=== PATIENT | female | born 1960 | race Caucasian/White ===

== ENCOUNTER 2019-11-21 12:56 | Inpatient (IN) | payer MEDICARE, OTHER, SELFPAY ==
--- NOTE | ~2019-11-21 | XR_ITS ---
EXAMINATION: XR chest 2V DATE: 11/21/2019 15:58 INDICATION: Smoker. Preop. TECHNIQUE: Frontal and lateral views of the chest were obtained. COMPARISON: None. FINDINGS: The lungs are hyperexpanded. No pleural effusion or pneumothorax. The heart size is normal. IMPRESSION: 1. Hyperexpanded lungs, consistent with chronic obstructive pulmonary disease. Reviewed, dictated and finalized at location A.
--- NOTE | ~2019-11-21 | XR_ITS ---
EXAMINATION: XR hip LT 2V w AP pelvis DATE: 11/21/2019 15:38 INDICATION: Left hip pain. TECHNIQUE: An anteroposterior view of the pelvis and 2 views of left hip were obtained. COMPARISON: Pelvis radiograph 05/31/2018 FINDINGS: There is a subcapital fracture of left femoral neck. The distal fracture fragment demonstra tom impaction and 20 degrees valgus angulation. There is moderate left hip osteoarthritis. There is a total right hip arthroplasty in near-anatomic alignment. IMPRESSION: 1. Subcapital fracture of left femoral neck. 2. Moderate left hip osteoarthritis. 3. Total right hip arthroplasty in near-anatomic alignment. Reviewed, dictated and finalized at location A.
--- NOTE | ~2019-11-21 | XR_ITS ---
EXAMINATION: XR surgery orthopedic DATE: 11/22/2019 13:26 INDICATION: Left hip pinning TECHNIQUE: 2 fluoroscopic images of the left hip were obtained during procedure performed by Dr. Luis F fortune. Radiologist was not present for the imaging or procedure. The amount of fluoroscopy time used du ring this procedure was 2.6 minutes. COMPARISON: 11/21/2019 FINDINGS: Interval fixation of the previously noted subcapital fracture of the proximal femur with 3 cannulated lag screws. No change in some impaction along the posterior and lateral margins of the fracture. The re is some widening of the left hip joint space which could be related to the presence of a joint eff usion or traction upon the lower extremity. Expected small amount of postoperative gas in the surroun ding soft tissues. IMPRESSION: 1. Expected appearance post lag screw fixation of an impacted subcapital fracture of the proximal lef t femur. Reviewed, dictated and finalized at location A. IMPRESSION: 1. Expected appearance post lag screw fixation of an impacted subcapital fractu re of the proximal left femur.
[2019-11-21 13:14] VITALS: BP 119/72; PULSE 88; RESP 16; TEMP 36.6; O2SAT 100
[2019-11-21 14:41] VITALS: BP 119/72; PULSE 88; RESP 17; TEMP 36.6; O2SAT 100
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
[2019-11-21] MEDS: MORPHINE SULFATE (*CRX) 2 MG/ML INJ IV PUSH ×3 (15:36→22:36)
[2019-11-21 16:13] LABS: Basophils Absolute Auto 0.1 K/mm3 (0.0-0.1); Basophils Percent Auto 0.5 % (0.2-1.2); Eosinophils Absolute Auto 0.1 K/mm3 (0-0.3); Eosinophils Percent Auto 1.3 % (0-4.4); Hematocrit 46.1 % (37.0-47.0); Hemoglobin 15.2 g/dL (12.0-15.0); Immature Granulocyte Absolute 0.03 K/mm3 (0.00-0.031); Immature Granulocyte Percent A 0.3 % (0-0.5); Lymphocytes Absolute Auto 2.53 K/mm3 (0.9-3.2); Lymphocytes Percent Auto 27.8 % (18.3-44.2); Mean Corpuscular Hemoglobin 33.1 pg (26-34); Mean Corpuscular Volume 100.4 fl (80-100); Mean Platelet Volume 11.5 fl (7.4-10.4); Monocytes Absolute Auto 0.9 K/mm3 (0.1-0.6); Monocytes Percent Auto 9.5 % (2.6-8.5); Neutrophils Absolute Auto 5.5 K/mm3 (1.3-6.7); Neutrophils Percent Auto 60.6 % (45.5-73.1); Platelet Count Result 168 k/mm3 (150-375); Red Blood Count 4.59 M/mm3 (4.2-5.4); Red Cell Distribution Width 13.4 % (11.5-14.5); White Blood Count 9.1 K/mm3 (4.5-10.0)
[2019-11-21 16:23] LABS: Prothrombin Time 13.3 Seconds (11.1-14.7)
[2019-11-21 16:24] LABS: Partial Thromboplastin Time 26.1 SECONDS (22.3-36.8)
[2019-11-21 16:26] LABS: Anion Gap 7 mmol/L (8-16); Blood Urea Nitrogen 15 mg/dL (7-17); Calcium 9.7 mg/dL (8.4-10.2); Carbon Dioxide 33 mmol/L (22-30); Chloride 97 mmol/L (98-107); Estimated CRCL calculation 67 ml/min; Estimated Glomerular Filt Rate > 60; Glucose 106 mg/dL (65-105); Sodium 137 mmol/L (137-145)
[2019-11-21 18:42] VITALS: BP 113/80; PULSE 83; RESP 20; TEMP 37.2; O2SAT 98
[2019-11-21 19:10] VITALS: BP 100/63; PULSE 71; RESP 20; TEMP 36.4; O2SAT 97; BMI 19.4
--- NOTE | 2019-11-21 19:44 | ADMGEN ---
This patient, Saray Middleton, was admitted to 3 [facility] Surg Room 315-01. Patient/family oriented to hospital policies and general routines including ID bracelet, bed and alarms, visiting hours, pain management, procedures, bathroom and other care routines, personal items, smoking policy, room service/diet, and visiting hours. Valuables list has been completed. Information on how to activate the Rapid Response Team has been discussed. Patient/Family are encouraged to report perceived risks to care and to ask questions if they do not understand what they are told or what they should do.
[2019-11-21 22:00] VITALS: BP 105/49; PULSE 73; RESP 20; TEMP 36.7; O2SAT 94
[2019-11-22] VITALS (13 sets, daily range): BP systolic 96–128; BP diastolic 44–75; PULSE 58–74; RESP 10–20; TEMP 36.1–37; O2SAT 94–100
[2019-11-22] MEDS: MORPHINE SULFATE (*CRX) 2 MG/ML INJ IV PUSH ×4 (01:52→10:40)
--- NOTE | 2019-11-22 09:40 | SUR.PREOP ---
Confirmed giving patient Ancef in OR with known penicillin allergy. Per Dr. Mcqueen proceed with orders for IV ancef.
[2019-11-22] MEDS: DEXTROSE 5%/0.45% SOD CHL 1,000 ML 125 ML IV CONT (10:01)
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
--- NOTE | 2019-11-22 10:49 | WPDANESEPPF ---
Anes - Initial Pre Proc Eval Procedure: Operation Date: 11/22/19 13:00 Proposed Procedures p Left Hip Pinning(Left) - Garcia Mcqueen MD Date/Time: 11/22/19 10:49 Surgeon: Garcia Mcqueen MD Pre Op Diagnosis: left hip fracture Patient Data Age: 59 Gender: F Height: 5 ft 10 in Weight: 61.4 kg Last Vital Signs Temp 97.9 F 11/22/19 06:00 Pulse 65 11/22/19 06:00 Resp 20 11/22/19 06:00 BP 100/47 L 11/22/19 06:00 Pulse Ox 96 11/22/19 06:00 Allergies Allergy/AdvReac Type Severity Reaction Status Date / Time Sulfa (Sulfonamide Allergy Mild Anaphylactic Verified 11/21/19 14:45 Antibiotics) Shock Penicillins Allergy Unknown Anaphylaxis Verified 11/21/19 14:45 Home Medications Medication Instructions Recorded Confirmed Type escitalopram oxalate 30 mg PO DAILY 11/21/19 11/21/19 History trazodone 150 mg PO HS 11/21/19 11/21/19 History Laboratory Tests 11/21/19 11/21/19 11/21/19 16:06 16:06 16:06 WBC 9.1 K/mm3 K/mm3 (4.5-10.0) RBC 4.59 M/mm3 M/mm3 (4.2-5.4) Hgb 15.2 g/dL H g/dL (12.0-15.0) Hct 46.1 % % (37.0-47.0) MCV 100.4 fl H fl (80-100) MCH 33.1 pg pg (26-34) MCHC 33.0 g/dl g/dl (32-36) RDW 13.4 % % (11.5-14.5) Plt Count 168 k/mm3 k/mm3 (150-375) MPV 11.5 fl H fl (7.4-10.4) Immature Gran % (Auto) 0.3 % % (0-0.5) Neut % (Auto) 60.6 % % (45.5-73.1) Lymph % (Auto) 27.8 % % (18.3-44.2) [place] % (Auto) 9.5 % H % (2.6-8.5) Eos % (Auto) 1.3 % % (0-4.4) Baso % (Auto) 0.5 % % (0.2-1.2) Lymph # (Auto) 2.53 K/mm3 K/mm3 (0.9-3.2) [place] # (Auto) 0.9 K/mm3 H K/mm3 (0.1-0.6) Eos # (Auto) 0.1 K/mm3 K/mm3 (0-0.3) Baso # (Auto) 0.1 K/mm3 K/mm3 (0.0-0.1) Abs Immat Gran (auto) 0.03 K/mm3 K/mm3 (0.00-0.031) Absolute Neuts (auto) 5.5 K/mm3 K/mm3 (1.3-6.7) Absolute Nucleated RBC 0.0 K/mm3 K/mm3 (0.0-0.012) Nucleated RBC % 0.0 % % (0.0-0.2) PT 13.3 Seconds Seconds (11.1-14.7) INR 1.0 APTT 26.1 SECONDS SECONDS (22.3-36.8) Sodium 137 mmol/L mmol/L (137-145) Potassium 4.0 mmol/L mmol/L (3.4-5.0) Chloride 97 mmol/L L mmol/L (98-107) Carbon Dioxide 33 mmol/L H mmol/L (22-30) Anion Gap 7 mmol/L L mmol/L (8-16) BUN 15 mg/dL mg/dL (7-17) Creatinine 0.80 mg/dL mg/dL (0.7-1.0) Estim Creat Clear Calc 67 ml/min ml/min Estimated GFR > 60 (59 - ) Glucose 106 mg/dL H mg/dL (65-105) Calcium 9.7 mg/dL mg/dL (8.4-10.2) Patient hx anesthesia problems: none Family hx anesthesia problems: none PMFSH Past Medical History Medical History Depression Surgical History Surgical History History of right hip replacement Social History Social History Smoking packs per day: 1 Smoking cigarettes per day: 20.0 Years smoked: 25 Smoking pack-years: 25.00 Smoking status: Current every day smoker Smoking end date: 02/23/17 Alcohol intake: current Drinks per week: 2 Substance use: never Spiritual care concerns: No Anes - Eval Final PreProcedure Day of Procedure 11/22/19 10:49 Patient weight: normal Heart: regular rate and rhythm Lungs: clear to auscultation Airway: Mallampati scale class II Neurological: alert and oriented Last oral intake: >/= 8 hours ASA classification: II Emergent: no Anesthetic plan: proceed Anesthesia type and monitoring: general ETT and standard monitoring Informed Consent: The patient's anesthetic plan and its attendant risks and benefits were discussed with the patient/family/POA. Questions were solicited and answers
--- NOTE | 2019-11-22 11:25 | PC.NURSE ---
Patient down to surgery at 1125.
--- NOTE | 2019-11-22 11:30 | SUR.PREOP ---
Obtained orders for 50MCG fentanyl IVP once for patient's left hip pain from Dr. He. Patient rating pain an 8 on numeric scale at this time.
[2019-11-22] MEDS: ACETAMINOPHEN 500 MG TABLET 1000 MG PO (11:33)
[2019-11-22] MEDS: LACTATED RINGERS 1,000 ML 30 ML IV CONT ×2 (11:33→13:31)
--- NOTE | 2019-11-22 11:55 | WPDHPUPDATE1 ---
History and Physical Update Update Date/Time: 11/22/19 11:55 History and Physical has been reviewed, including an updated exam of the patient. There are NO changes in the patient's condition. Risks, benefits, and alternatives have been discussed and questions answered. Patient agrees to proceed with procedure.
[2019-11-22] MEDS: fentaNYL CITRATE INJ (*CRX) 100 MCG/2 ML VIAL 50 MCG IV PUSH (11:57)
[2019-11-22] MEDS: ceFAZolin 2 GM/D5W 50 ML 2 GM/50 ML BAG IVPB ×2 (12:33→19:44)
--- NOTE | 2019-11-22 13:20 | PM.PROC ---
Procedure Note - Detailed Date of procedure: 11/22/19 Pre-op diagnosis: left hip fracture LEFT FEMORAL NECK FRACTURE Post-op diagnosis: same Procedure performed: CLOSED REDUCTION, PERCUTANEOUS PINNING LEFT FEMORAL NECK Description of procedure: THE PATIENT WAS TAKEN TO THE OPERATING ROOM AND PLACED UNDER GENERAL ANESTHESIA. THE PATIENT WAS PLACED ON A FRACTURE TABLE. USING MILD TRACTION AND INTERNAL ROTATION THE LEFT FEMORAL NECK FRACTURE WAS REDUCED TO NEAR ANATOMIC POSITION. NEXT THE LEFT LOWER EXTREMITY WAS PREPPED AND DRAPED IN THE STERILE FASHION FROM THE KNEE TO THE ILIAC CREST. THE INCISION WAS MADE ON THE LATERAL HIP JUST DISTAL TO THE GREATER TROCHANTER DOWN TO THE BONE. BLEEDERS WERE CAUTERIZED. 3 GUIDE PINS WERE PLACED THROUGH THE FEMORAL NECK AND PASSED THE FRACTURE SITE AND IN TO THE SUBCHONDRAL BONE OF THE FEMORAL HEAD. 3, 7.3 CANNULATED SCREWS WERE PLACED OVER THE GUIDE PINS AND THESE WERE SHOWN TO BE IN GOOD POSITION PER FLUOROSCOPY ON BOTH THE AP AND LATERAL VIEWS. THEY ALL HAD EXCELLENT BITES. THE WOUND WAS WASHED WELL. THE DEEP FASCIAL LAYER WAS APPROXIMATED WITH 0 VICRYL SUTURE, THE SUBCUTANEOUS LAYER WITH 2-0 VICRYL AND THE SKIN WAS APPROXIMATED WITH ANNA. A STERILE DRESSING WAS PLACED. THE PATIENT WAS TRANSFERRED TO A REGULAR BED AND WAS EXTUBATED AND SENT TO RECOVERY ROOM Anesthesia: AZAR Surgeon: Garcia Mcqueen MD Estimated blood loss (mL): 50 Complications: No immediate complications Condition: stable Disposition: PACU
[2019-11-22] MEDS: fentaNYL CITRATE INJ (*CRX) 100 MCG/2 ML VIAL 25 MCG IV PUSH ×8 (13:47→14:15)
[2019-11-22] MEDS: ONDANSETRON INJ 4 MG/2 ML VIAL IV PUSH (14:08)
[2019-11-22] MEDS: HYDROmorphone HCL INJ (*CRX) 1 MG/ML SYR 0.5 MG IV PUSH ×2 (14:23→14:28)
--- NOTE | 2019-11-22 14:33 | SUR.PHASEI ---
1433 - dr. palafox at bedside talking with pt
--- NOTE | 2019-11-22 15:10 | PC.NURSE ---
Patient back on floor from surgery at 1505.
[2019-11-22] MEDS: SODIUM CHLORIDE 0.9% IV 1,000 ML 125 ML IV CONT ×2 (15:55→23:47)
[2019-11-22] MEDS: HYDROcodone/acetaminophen (*CRX) 7.5-325 MG TABLET 1 TAB PO ×2 (16:35→21:56)
[2019-11-22] MEDS: DOCUSATE SODIUM 100 MG CAPSULE PO (16:39)
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
[2019-11-22] MEDS: traZODone HCL 50 MG TABLET 150 MG PO (19:44)
[2019-11-22] MEDS: MORPHINE SULFATE (*CRX) 4 MG/ML INJ 3 MG IV PUSH (19:45)
[2019-11-23] MEDS: MORPHINE SULFATE (*CRX) 4 MG/ML INJ 3 MG IV PUSH (02:15)
[2019-11-23] MEDS: ceFAZolin 2 GM/D5W 50 ML 2 GM/50 ML BAG IVPB ×2 (03:47→11:09)
[2019-11-23] MEDS: oxyCODONE/ACETAMINOPHEN (*CRX) 5-325 MG TABLET 2 TABLET PO ×6 (03:52→23:01)
[2019-11-23 06:10] VITALS: BP 142/64; PULSE 68; RESP 12; TEMP 36.3; O2SAT 98
[2019-11-23 07:18] LABS: Basophils Percent Auto 0.4 % (0.2-1.2); Eosinophils Absolute Auto 0.1 K/mm3 (0-0.3); Eosinophils Percent Auto 0.7 % (0-4.4); Hematocrit 38.1 % (37.0-47.0); Hemoglobin 12.5 g/dL (12.0-15.0); Immature Granulocyte Absolute 0.04 K/mm3 (0.00-0.031); Immature Granulocyte Percent A 0.5 % (0-0.5); Lymphocytes Absolute Auto 2.12 K/mm3 (0.9-3.2); Lymphocytes Percent Auto 28.2 % (18.3-44.2); Mean Corpuscular HGB Conc 32.8 g/dl (32-36); Mean Corpuscular Hemoglobin 32.5 pg (26-34); Mean Platelet Volume 11.4 fl (7.4-10.4); Monocytes Absolute Auto 0.7 K/mm3 (0.1-0.6); Monocytes Percent Auto 9.6 % (2.6-8.5); Neutrophils Absolute Auto 4.6 K/mm3 (1.3-6.7); Neutrophils Percent Auto 60.6 % (45.5-73.1); Platelet Count Result 155 k/mm3 (150-375); Red Blood Count 3.85 M/mm3 (4.2-5.4); Red Cell Distribution Width 12.6 % (11.5-14.5); White Blood Count 7.5 K/mm3 (4.5-10.0)
[2019-11-23 07:27] LABS: Anion Gap 2 mmol/L (8-16); Blood Urea Nitrogen 11 mg/dL (7-17); Calcium 8.8 mg/dL (8.4-10.2); Carbon Dioxide 34 mmol/L (22-30); Chloride 104 mmol/L (98-107); Estimated CRCL calculation 74 ml/min; Estimated Glomerular Filt Rate > 60; Glucose 95 mg/dL (65-105); Sodium 140 mmol/L (137-145)
[2019-11-23] MEDS: CELECOXIB 200 MG CAPSULE PO (07:58)
[2019-11-23] MEDS: ASPIRIN 325 MG ENTERIC TABLET 650 MG PO (07:58)
[2019-11-23] MEDS: DOCUSATE SODIUM 100 MG CAPSULE PO ×2 (07:59→17:07)
[2019-11-23] MEDS: ESCITALOPRAM OXALATE 10 MG TABLET 30 MG PO (07:59)
--- NOTE | 2019-11-23 12:59 | WPDANESPN ---
Anes - Prog Note Post-Op Date/Time: 11/23/19 12:59 Cardiovascular status: normal Respiratory status: normal Airway patency: baseline Mental status: baseline Post-Op hydration status: normal Vital Signs: Last Vital Signs Temp 36.3 C L 11/23/19 06:10 Pulse 68 11/23/19 06:10 Resp 12 11/23/19 06:10 BP 142/64 H 11/23/19 06:10 Pulse Ox 98 11/23/19 06:10 Pain Score (VAS): 0/10. Patient resting in bed at time of assessment, appears comfortable. No additional concerns or issues addressed by patient at time of assessment. I/O: Intake & Output 11/22/19 11/23/19 11/23/19 23:59 07:59 15:59 Intake Total 2150 800 290 Output Total 2800 Balance 2150 -1999 290 Laboratory Tests 11/23/19 06:35 11/23/19 06:35 11/23/19 11/23/19 06:35 06:35 WBC 7.5 RBC 3.85 L Hgb 12.5 Hct 38.1 MCV 99.0 MCH 32.5 MCHC 32.8 RDW 12.6 Plt Count 155 MPV 11.4 H Immature Gran % (Auto) 0.5 Neut % (Auto) 60.6 Lymph % (Auto) 28.2 [place] % (Auto) 9.6 H Eos % (Auto) 0.7 Baso % (Auto) 0.4 Lymph # (Auto) 2.12 [place] # (Auto) 0.7 H Eos # (Auto) 0.1 Baso # (Auto) 0.0 Abs Immat Gran (auto) 0.04 H Absolute Neuts (auto) 4.6 Absolute Nucleated RBC 0.0 Nucleated RBC % 0.0 Sodium 140 Potassium 4.0 Chloride 104 Carbon Dioxide 34 H Anion Gap 2 L BUN 11 Creatinine 0.70 Estim Creat Clear Calc 74 Estimated GFR > 60 Glucose 95 Calcium 8.8 Post-procedural complaints: none Patient Feedback: Patient satisfied with anesthetic care.
--- NOTE | 2019-11-23 13:01 | PM.IMPN ---
Progress Note: A&P Assessment and Plan (1) Fracture of left hip requiring operative repair: Code(s): S72.002A - Fracture of unspecified part of neck of left femur, initial encounter for closed fracture Status: Acute Assessment and Plan: Patient is doing well postop day 1. After having a CLOSED REDUCTION, PERCUTANEOUS PINNING LEFT FEMORAL NECK. The patient has bilateral SCDs on but DVT prophylaxis per ortho. Pain management per Ortho. Postop care per Ortho. Your consult on for medical management in her postop labs are all within normal range. There is no adjustments necessary at this time and she is stable from a medical standpoint for discharge once medically cleared by orthopedic surgery. (2) Anxiety: Code(s): F41.9 - Anxiety disorder, unspecified Status: Chronic Assessment and Plan: Continue with Lexapro and trazodone (3) Depression: Code(s): F32.9 - Major depressive disorder, single episode, unspecified Status: Chronic Assessment and Plan: continue with Lexapro (4) Tobacco abuse: Code(s): Z72.0 - Tobacco use Status: Chronic Assessment and Plan: Explained to the patient she needs to quit smoking for 3 minutes. I told her that her chest x-ray showed she has some hyperinflation from COPD changes. Patient is not interested at this time is not want a nicotine patch at this time. Time Spent With Patient Time with patient: 25 - 35 minutes Subjective Date/time seen: 11/23/19 13:01 Interval history: Date of service 11/23/2019: The patient reports feeling well today. She is having some pain to her hip after surgery but she is resting now on it is more comfortable. She has been eating and drinking without any issues. She is passing gas, but has not had a bowel movement at this point. She denies any leg swelling, calf pain, chest pain, shortness of breath, cough, fever, chills, nausea, vomiting, abdominal pain or any other symptoms at this time. Review of Systems Review of Systems: All systems reviewed & are unremarkable except as noted in HPI and below Exam Narrative: Exam Narrative: General: 59-year-old woman laying flat in bed with head elevated at 30?. Appears comfortable. In no acute distress. Skin: No jaundice or cyanosis. Good skin turgor. Neck: Full range of motion. Supple. Respiratory: Lungs are clear to auscultation bilaterally. No bony chest wall tenderness. Cardiovascular: The heart has a regular rate and rhythm without murmur Lower extremities: left hip dressing in place post op which was not evaluated and left up to Ortho. No lower extremity edema. Distal pulses are easily palpated. No calf tenderness to palpation. Gastrointestinal: The abdomen is soft, nontender and nondistended with active bowel sounds. Psychiatric: Lucid and oriented. Memory intact. Neurologic: No focal deficits. Speech is clear. No facial drooping. Objective Data Vital Signs Vital Signs: Vital Signs - 24 hr 11/22/19 13:31 11/22/19 13:45 11/22/19 14:00 Temperature 97.0 F L Pulse Rate 58 L 70 61 Respiratory Rate 10 L 10 L 12 Blood Pressure 111/63 128/75 110/63 Pulse Oximetry 100 100 94 11/22/19 14:15 11/22/19 14:30 11/22/19 14:45 Temperature Pulse Rate 61 60 74 Respiratory Rate 12 10 L 20 Blood Pressure 122/63 125/66 119/67 Pulse Oximetry 97 97 95 11/22/19 15:10 11/22/19 15:25 11/22/19 15:55 Temperature 97.9 F Pulse Rate 64 65 64 Respiratory Rate 18 18 18 Blood Pressure 114/57 L 119/57 L 100/50 L Pulse Oximetry 95 94 94 11/22/19 16:55 11/22/19 20:40 11/23/19 06:10 Temperature 97.9 F 98.6 F 97.4 F L Pulse Rate 71 69 68 Respiratory Rate 18 14 12 Blood Pressure 104/52 L 116/51 L 142/64 H Pulse Oximetry 95 98 98 Intake/Output Intak
[2019-11-23 14:00] VITALS: BP 101/71; PULSE 75; RESP 18; TEMP 36.3; O2SAT 97
[2019-11-23] MEDS: diazePAM (*CRX) 5 MG TABLET PO (15:58)
--- NOTE | 2019-11-23 16:07 | PM.PNORT ---
Progress Note: A&P Additional Plan POD 1 DOING WELL. CONT PT Subjective Subjective Date/Time Seen: POD 1 DOING WELL. PAIN CONTROL IS A CHALLENGE 16:07 Exam Extrem: Other: VSS AFEBRILE DRESSING DRY NV INTACT NEG HOMANS SIGN CALF SOFT NON TENDER Objective Data Vital Signs Vital Signs: Vital Signs - 24 hr 11/22/19 16:55 11/22/19 20:40 11/23/19 06:10 Temperature 36.6 C 37.0 C 36.3 C L Pulse Rate 71 69 68 Respiratory Rate 18 14 12 Blood Pressure 104/52 L 116/51 L 142/64 H Pulse Oximetry 95 98 98 11/23/19 14:00 Temperature 36.3 C L Pulse Rate 75 Respiratory Rate 18 Blood Pressure 101/71 Pulse Oximetry 97 Intake/Output Intake/Output: Intake & Output 11/20/19 11/21/19 11/22/19 11/23/19 23:59 23:59 23:59 23:59 Intake Total 3140 1330 Output Total 2800 Balance 3140 -1470 Meds/Results Medications: Active Medications Generic Name Dose Route Start Last Admin Trade Name Freq PRN Reason Stop Dose Admin Acetaminophen 650 mg 11/22/19 15:00 Tylenol Tablet PO Q6H PRN Mild Pain (1-3) or Fever Hydrocodone Bitart/Acetaminophen 1 tab 11/22/19 15:00 11/22/19 21:56 [place] 7.5-325 Mg PO 1 tab Q3H PRN Administration Pain Rated 4-6 Al Hydrox/Mg Hydrox/Simethicone 30 ml 11/22/19 15:00 Mylanta PO Q6H PRN Indigestion Aspirin 650 mg 11/23/19 09:00 11/23/19 07:58 Aspirin Ec PO 650 mg DAILY BILL Administration Celecoxib 200 mg 11/23/19 08:00 11/23/19 07:58 Celebrex PO 200 mg DAILY@0800 BILL Administration Diazepam 5 mg 11/22/19 15:00 11/23/19 15:58 Valium Po PO 5 mg Q8H PRN Administration Muscle Spasm Docusate Sodium 100 mg 11/22/19 17:00 11/23/19 07:59 Colace Capsule PO 100 mg BID BILL Administration Escitalopram Oxalate 30 mg 11/23/19 09:00 11/23/19 07:59 Lexapro PO 30 mg DAILY BILL Administration Magnesium Hydroxide 30 ml 11/22/19 15:00 Milk Of Magnesia PO BID PRN Constipation Morphine Sulfate 3 mg 11/22/19 15:00 11/23/19 02:15 Morphine Sulfate Inj (*Crx) IV PUSH 3 mg Q3H PRN Administration Pain Rated 7-10 Naloxone HCl 0.1 mg 11/22/19 15:00 Narcan IV PUSH Q2M PRN Opiate Reversal Ondansetron HCl 4 mg 11/22/19 15:00 Zofran Inj IV PUSH Q4H PRN Nausea And Vomiting Oxycodone/Acetaminophen 2 tablet 11/22/19 15:00 11/23/19 14:54 Percocet 5-325 Mg PO 2 tablet Q4H PRN Administration Breakthrough Pain Trazodone HCl 150 mg 11/22/19 21:00 11/22/19 19:44 Desyrel PO 150 mg HS BILL Administration Radiology Results: ITS Impressions Hip/Pelvis X-Ray 11/21/19 15:40 IMPRESSION: 1. Subcapital fracture of left femoral neck. 2. Moderate left hip osteoarthritis. 3. Total right hip arthroplasty in near-anatomic alignment. Chest X-Ray 11/21/19 16:00 IMPRESSION: 1. Hyperexpanded lungs, consistent with chronic obstructive pulmonary disease. Intraoperative X-Ray 11/22/19 15:40 IMPRESSION: 1. Expected appearance post lag screw fixation of an impacted subcapital fracture of the proximal left femur. Labs Labs: Laboratory Results - last 24 hr 11/23/19 11/23/19 06:35 06:35 WBC 7.5 RBC 3.85 L Hgb 12.5 Hct 38.1 MCV 99.0 MCH 32.5 MCHC 32.8 RDW 12.6 Plt Count 155 MPV 11.4 H Immature Gran % (Auto) 0.5 Neut % (Auto) 60.6 Lymph % (Auto) 28.2 [place] % (Auto) 9.6 H Eos % (Auto) 0.7 Baso % (Auto) 0.4 Lymph # (Auto) 2.12 [place] # (Auto) 0.7 H Eos # (Auto) 0.1 Baso # (Auto) 0.0 Abs Immat Gran (auto) 0.04 H Absolute Neuts (auto) 4.6 Absolute Nucleated RBC 0.0 Nucleated RBC % 0.0 Sodium 140 Potassium 4.0 Chloride 104 Carbon Dioxide 34 H Anion Gap 2 L BUN 11 Creatinine 0.70 Estim Creat Clear Calc 74 Estimated GFR > 60 Glucose 95 Calcium 8.8 Quality VTE Prophylaxis VTE prophylaxis: mechanical ordered
[2019-11-23] MEDS: traZODone HCL 50 MG TABLET 150 MG PO (21:23)
[2019-11-23 22:00] VITALS: BP 101/48; PULSE 70; RESP 18; TEMP 36.9; O2SAT 95
[2019-11-24] MEDS: diazePAM (*CRX) 5 MG TABLET PO ×3 (00:32→20:49)
[2019-11-24 03:27] VITALS: BP 124/56; PULSE 69; O2SAT 98
[2019-11-24] MEDS: oxyCODONE/ACETAMINOPHEN (*CRX) 5-325 MG TABLET 2 TABLET PO ×5 (03:28→23:55)
[2019-11-24 06:00] VITALS: BP 112/58; PULSE 63; RESP 18; TEMP 36.8; O2SAT 97
[2019-11-24] MEDS: DOCUSATE SODIUM 100 MG CAPSULE PO ×2 (08:19→18:03)
[2019-11-24] MEDS: ESCITALOPRAM OXALATE 10 MG TABLET 30 MG PO (08:19)
[2019-11-24] MEDS: ASPIRIN 325 MG ENTERIC TABLET 650 MG PO (08:19)
[2019-11-24] MEDS: CELECOXIB 200 MG CAPSULE PO (08:19)
--- NOTE | 2019-11-24 09:31 | PM.PNORT ---
Progress Note: A&P Assessment and Plan (1) Fracture of left hip requiring operative repair: Qualifiers: Encounter type: subsequent encounter Fracture type: closed Fracture healing: with routine healing Qualified Code(s): S72.002D - Fracture of unspecified part of neck of left femur, subsequent encounter for closed fracture with routine healing Code(s): S72.002A - Fracture of unspecified part of neck of left femur, initial encounter for closed fracture Status: Acute Assessment and Plan: POD #2 CRPP Left Hip Continue PT/OT. TTWB LLE. Walker. Fall risk. Continue pain control. Ice lateral hip. Monitor dressing. Change daily. Continue DVT prophylaxis. Continue SCDs. Incentive Spirometry. Dispo: Home with Home Health pending progress with PT/OT. Subjective Subjective Date/Time Seen: 11/24/19 09:31 POD #2: Left Hip CRPP No complaints. Tolerating pain well. Review of Systems Review of Systems: All systems reviewed & are unremarkable except as noted in HPI and below Constitutional: Constitutional: Denies chills, Denies fatigue, Denies fever(s) and Denies weakness Cardiovascular: Cardiovascular: Denies chest pain and Denies palpitations Respiratory: Respiratory: Denies cough, Denies dyspnea and Denies wheezing Gastrointestinal: Gastrointestinal: Denies diarrhea, Denies nausea and Denies vomiting Genitourinary: Genitourinary: Denies hematuria, Reports nocturia and Denies dysuria Musculoskeletal: Musculoskeletal: Reports arthralgias (left hip ), Reports joint swelling (left hip ) and Reports limited range of motion (left hip ) Exam Const: General: comfortable and no acute distress Resp: Effort & Inspection: normal respiratory effort Cardio: Rate: regular rate Rhythm: regular rhythm GI: Inspection: non-distended Skin: Wounds: wounds noted (incision c/d/i ) Neuro: Cognition (Neuro): normal cognition Extrem: Left lower extremity: hip/thigh Details: tenderness Location: of the hip Location: laterally, swelling Location: of the hip, abnormal ROM (limited due to recent surgical intervention. ) and ecchymosis (lateral thigh ); no crepitus Other: Left lateral incision c/d/i. Negative Jeevan's sign. 2+ pedal pulses. NV intact. Moves toes. good capillary refill. Psych: Mental Status: mental status grossly normal Affect: normal affect Objective Data Vital Signs Vital Signs: Vital Signs - 24 hr 11/23/19 14:00 11/23/19 22:00 11/24/19 03:27 Temperature 36.3 C L 36.9 C Pulse Rate 75 70 69 Respiratory Rate 18 18 Blood Pressure 101/71 101/48 L 124/56 L Pulse Oximetry 97 95 98 11/24/19 06:00 Temperature 36.8 C Pulse Rate 63 Respiratory Rate 18 Blood Pressure 112/58 L Pulse Oximetry 97 Intake/Output Intake/Output: Intake & Output 11/21/19 11/22/19 11/23/19 11/24/19 23:59 23:59 23:59 23:59 Intake Total 3140 2460 50 Output Total 2800 Balance 3140 -340 50 Meds/Results Medications: Active Medications Generic Name Dose Route Start Last Admin Trade Name Freq PRN Reason Stop Dose Admin Acetaminophen 650 mg 11/22/19 15:00 Tylenol Tablet PO Q6H PRN Mild Pain (1-3) or Fever Hydrocodone Bitart/Acetaminophen 1 tab 11/22/19 15:00 11/22/19 21:56 [place] 7.5-325 Mg PO 1 tab Q3H PRN Administration Pain Rated 4-6 Al Hydrox/Mg Hydrox/Simethicone 30 ml 11/22/19 15:00 Mylanta PO Q6H PRN Indigestion Aspirin 650 mg 11/23/19 09:00 11/24/19 08:19 Aspirin Ec PO 650 mg DAILY BILL Administration Celecoxib 200 mg 11/23/19 08:00 11/24/19 08:19 Celebrex PO 200 mg DAILY@0800 BILL Administration Diazepam 5 mg 11/22/19 15:00 11/24/19 00:32 Valium Po PO 5 mg Q8H PRN Administration Muscle Spasm Docusate Sodium 100 mg 11/22/19 17:00 11/24/19 08:19 Colace Capsule PO 100 mg BID BILL Administration Escitalopram Oxalate 30 mg 11/23/19 09:00 11/24/19 08:19 Lexapro PO 30 mg
--- NOTE | 2019-11-24 10:14 | PM.IMPN ---
Progress Note: A&P Assessment and Plan (1) Fracture of left hip requiring operative repair: Code(s): S72.002A - Fracture of unspecified part of neck of left femur, initial encounter for closed fracture Status: Acute Assessment and Plan: Patient is doing well postop day 1. After having a CLOSED REDUCTION, PERCUTANEOUS PINNING LEFT FEMORAL NECK. The patient has bilateral SCDs on but DVT prophylaxis per ortho. Pain management per Ortho. Postop care per Ortho. we were consulted on for medical management in her postop labs are all within normal range. There is no adjustments necessary at this time and she is stable from a medical standpoint for discharge once medically cleared by orthopedic surgery. (2) Anxiety: Code(s): F41.9 - Anxiety disorder, unspecified Status: Chronic Assessment and Plan: Continue with Lexapro and trazodone (3) Depression: Code(s): F32.9 - Major depressive disorder, single episode, unspecified Status: Chronic Assessment and Plan: continue with Lexapro (4) Tobacco abuse: Code(s): Z72.0 - Tobacco use Status: Chronic Assessment and Plan: Explained to the patient she needs to quit smoking for 3 minutes. I told her that her chest x-ray showed she has some hyperinflation from COPD changes. Patient is not interested at this time is not want a nicotine patch at this time. Time Spent With Patient Time with patient: 25 - 35 minutes Subjective Date/time seen: 11/24/19 10:14 Interval history: Date of service 11/24/2019: The patient reports feeling well today. She is having some increased pain and tightness to her left hip and left knee today but she has been walking around with therapy. She is requesting some Valium. She has been eating and drinking without any issues. She is passing gas, but has not had a bowel movement at this point. She denies any leg swelling, calf pain, chest pain, shortness of breath, cough, fever, chills, nausea, vomiting, abdominal pain or any other symptoms at this time. Review of Systems Review of Systems: All systems reviewed & are unremarkable except as noted in HPI and below Exam Narrative: Exam Narrative: General: 59-year-old woman Sitting up in bed with head elevated at 30?. Appears comfortable. In no acute distress. Skin: No jaundice or cyanosis. Good skin turgor. Neck: Full range of motion. Supple. Respiratory: Lungs are clear to auscultation bilaterally. No bony chest wall tenderness. Cardiovascular: The heart has a regular rate and rhythm without murmur Lower extremities: left hip dressing in place post op which was not evaluated and left up to Ortho. No lower extremity edema. Distal pulses are easily palpated. No calf tenderness to palpation. Gastrointestinal: The abdomen is soft, nontender and nondistended with active bowel sounds. Psychiatric: Lucid and oriented. Memory intact. Neurologic: No focal deficits. Speech is clear. No facial drooping. Objective Data Vital Signs Vital Signs: Vital Signs - 24 hr 11/23/19 14:00 11/23/19 22:00 11/24/19 03:27 Temperature 97.3 F L 98.4 F Pulse Rate 75 70 69 Respiratory Rate 18 18 Blood Pressure 101/71 101/48 L 124/56 L Pulse Oximetry 97 95 98 11/24/19 06:00 Temperature 98.2 F Pulse Rate 63 Respiratory Rate 18 Blood Pressure 112/58 L Pulse Oximetry 97 Intake/Output Intake/Output: Intake & Output 11/21/19 11/22/19 11/23/19 11/24/19 23:59 23:59 23:59 23:59 Intake Total 3140 2460 50 Output Total 2800 Balance 3140 -340 50 Meds/Results Medications: Active Medications Generic Name Dose Route Start Last Admin Trade Name Freq PRN Reason Stop Dose Admin Acetaminophen 650 mg 11/22/19 15:00 Tylenol Tablet PO Q6H PRN
[2019-11-24 14:00] VITALS: BP 115/63; PULSE 64; RESP 18; TEMP 36.6; O2SAT 97
[2019-11-24] MEDS: traZODone HCL 50 MG TABLET 150 MG PO (20:49)
[2019-11-24 22:00] VITALS: BP 110/56; PULSE 68; RESP 16; TEMP 36.7; O2SAT 98
[2019-11-25] MEDS: diazePAM (*CRX) 5 MG TABLET PO (05:19)
[2019-11-25 06:10] VITALS: BP 124/63; PULSE 75; RESP 18; TEMP 36.8; O2SAT 98
--- NOTE | 2019-11-25 08:05 | PCOTNOTE ---
Attempted to see patient this am, however patient declined. Pt already had been up to the bathroom and back. Pt states, I've already been through this once before with my other hip, so I'm good really. I wanted to go home, but I'm going to stay with my boyfriend for a few days, because he wants to help take care of me. Pt had no concerns as pertains to OT at this time.
[2019-11-25] MEDS: oxyCODONE/ACETAMINOPHEN (*CRX) 5-325 MG TABLET 2 TABLET PO ×2 (08:46→12:12)
[2019-11-25] MEDS: ESCITALOPRAM OXALATE 10 MG TABLET 30 MG PO (08:50)
[2019-11-25] MEDS: ASPIRIN 325 MG ENTERIC TABLET 650 MG PO (08:51)
[2019-11-25] MEDS: CELECOXIB 200 MG CAPSULE PO (08:51)
[2019-11-25] MEDS: DOCUSATE SODIUM 100 MG CAPSULE PO (08:51)
--- NOTE | 2019-11-25 11:38 | PM.PNORT ---
Progress Note: A&P Assessment and Plan (1) Fracture of left hip requiring operative repair: Qualifiers: Encounter type: subsequent encounter Fracture type: closed Fracture healing: with routine healing Qualified Code(s): S72.002D - Fracture of unspecified part of neck of left femur, subsequent encounter for closed fracture with routine healing Code(s): S72.002A - Fracture of unspecified part of neck of left femur, initial encounter for closed fracture Status: Acute Assessment and Plan: POD #3 CRPP Left Hip Continue PT/OT. TTWB LLE. Walker or crutches. Fall risk. Continue pain control. Ice lateral hip. Monitor dressing. Change daily. 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 Continue DVT prophylaxis. Continue SCDs. Incentive Spirometry. Dispo: Home with Home Health today. Subjective Subjective Date/Time Seen: 11/25/19 11:38 POD #3: Left Hip CRPP No complaints. Tolerating pain well. Wants to go home. Review of Systems Review of Systems: All systems reviewed & are unremarkable except as noted in HPI and below Constitutional: Constitutional: Denies chills, Denies fatigue, Denies fever(s) and Denies weakness Cardiovascular: Cardiovascular: Denies chest pain and Denies palpitations Respiratory: Respiratory: Denies cough, Denies dyspnea and Denies wheezing Gastrointestinal: Gastrointestinal: Denies diarrhea, Denies nausea and Denies vomiting Genitourinary: Genitourinary: Denies hematuria, Reports nocturia and Denies dysuria Musculoskeletal: Musculoskeletal: Reports arthralgias (left hip ), Reports joint swelling (left hip ) and Reports limited range of motion (left hip ) Exam Const: General: comfortable and no acute distress Resp: Effort & Inspection: normal respiratory effort Cardio: Rate: regular rate Rhythm: regular rhythm GI: Inspection: non-distended Skin: Wounds: wounds noted (incision c/d/i ) Neuro: Cognition (Neuro): normal cognition Extrem: Left lower extremity: hip/thigh Details: tenderness Location: of the hip Location: laterally, swelling Location: of the hip, abnormal ROM (limited due to recent surgical intervention. ) and ecchymosis (lateral thigh ); no crepitus Other: Left lateral incision c/d/i. Negative Jeevan's sign. 2+ pedal pulses. NV intact. Moves toes. good capillary refill. Psych: Mental Status: mental status grossly normal Affect: normal affect Objective Data Vital Signs Vital Signs: Vital Signs - 24 hr 11/24/19 14:00 11/24/19 22:00 11/25/19 06:10 Temperature 36.6 C 36.7 C 36.8 C Pulse Rate 64 68 75 Respiratory Rate 18 16 18 Blood Pressure 115/63 110/56 L 124/63 Pulse Oximetry 97 98 98 Intake/Output Intake/Output: Intake & Output 11/22/19 11/23/19 11/24/19 11/25/19 23:59 23:59 23:59 23:59 Intake Total 3140 2460 1989 730 Output Total 2800 Balance 3140 -340 1989 730 Meds/Results Medications: Active Medications Generic Name Dose Route Start Last Admin Trade Name Freq PRN Reason Stop Dose Admin Acetaminophen 650 mg 11/22/19 15:00 Tylenol Tablet PO Q6H PRN Mild Pain (1-3) or Fever Hydrocodone Bitart/Acetaminophen 1 tab 11/22/19 15:00 11/22/19 21:56 [place] 7.5-325 Mg PO 1 tab Q3H PRN Administration Pain Rated 4-6 Al Hydrox/Mg Hydrox/Simethicone 30 ml 11/22/19 15:00 Mylanta PO Q6H PRN Indigestion Aspirin 650 mg 11/23/19 09:00 11/25/19 08:51 Aspirin Ec PO 650 mg DAILY BILL Administration Celecoxib 200 mg 11/23/19 08:00 11/25/19 08:51 Celebrex PO 200 mg DAILY@0800 BILL Administration Diazepam 5 mg 11/22/19 15:00 11/25/19 05:19 Valium Po PO 5 mg Q8H PRN Administration Muscle Spasm Docusate Sodium 100 mg 11/22/19 17:00 11/25/19 08:51 Colace Capsule PO 100 mg BID BILL Administration Escitalopram Oxalate 30 mg 11/23/19 09:00 11/25/19 08:50 Lexapro PO 30 mg DAILY BILL Administration Magnesium Hydroxide 30 m
--- NOTE | 2019-11-25 11:42 | PM.DS ---
DS: Admitting Diagnosis Admitting Diagnosis Admitting Diagnosis: left hip fracture DS: Discharge Diagnosis Discharge Diagnosis (1) Fracture of left hip requiring operative repair: Qualifiers: Encounter type: subsequent encounter Fracture type: closed Fracture healing: with routine healing Qualified Code(s): S72.002D - Fracture of unspecified part of neck of left femur, subsequent encounter for closed fracture with routine healing Code(s): S72.002A - Fracture of unspecified part of neck of left femur, initial encounter for closed fracture Status: Acute Assessment and Plan: POD #3 CRPP Left Hip Continue PT/OT. TTWB LLE. Walker or crutches. Fall risk. Continue pain control. Ice lateral hip. Monitor dressing. Change daily. 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 Continue DVT prophylaxis. Continue SCDs. Incentive Spirometry. Dispo: Home with Home Health today. DS: Summary Hospital Course Reason for hospitalization: Left hip fracture Hospital Course: 59 year old female admitted to [facility] for a left hip fracture s/p fall. Radiographs revealed a valgus impacted left femoral neck fracture. She underwent a CRPP of the left hip fracture by Dr. Mcqueen. She progressed well with therapy postoperatively. She was deemed safe to go home with home health and TTWB of the LLE. She will follow up in our office for repeat radiographs and assessment in 5 weeks. Status at Discharge Functional status at discharge: uses cane/walker Overall status at discharge: patient is progressing back to baseline Time Spent with Patient Time attestation: Total time spent providing and/or coordinating discharge services: Exam Const: General: comfortable and no acute distress Resp: Effort & Inspection: normal respiratory effort Cardio: Rate: regular rate Rhythm: regular rhythm GI: Inspection: non-distended Skin: Wounds: wounds noted (incision c/d/i ) Neuro: Cognition (Neuro): normal cognition Extrem: Left lower extremity: hip/thigh Other: Left lateral incision c/d/i. Negative Jeevan's sign. 2+ pedal pulses. NV intact. Moves toes. good capillary refill. Psych: Mental Status: mental status grossly normal Affect: normal affect Discharge Plan Discharge Attending physician on discharge: Garcia Mcqueen Consulting providers: Mavis Pearson Discharging Clinician: Lianet Artis Anticipated Discharge Date/Time: 11/25/19 12:00 Patient Disposition: Home Health Service Activity: may shower and no driving Diet: as tolerated Wound Care Instructions: follow printed instructions and keep dressing dry Discharge Instructions: Per Care Coordination, pt. will discharge home with [facility] for continued PT/OT. [facility] will call pt. to schedule her first visit. Orthopedic Recommendations Dr. Garcia Mcqueen Continue toe-touch weight bearing. Walker. Prevent falls at home, remove rugs. Continue ice to lateral hip. Pain control NEEDED. Medication has been sent to the pharmacy. Continue DVT prevention with Aspirin. (called to pharmacy) All Medications have been called to the pharmacy. Stool softener to prevent constipation while taking narcotic pain medication. Your follow up appointment has been indicated below. Change dressing daily. Please send patient home with dressing supplies to get her to Thursday when HH will be out to see the patient. [place] to be removed on the 14th day after surgery by home health RN and steri-strips to be placed. Contact our office at [phone] with any questions or concerns regarding your hip. Patient Instructions: Antibiotic Form, How to Stop Smoking (DC), Hip Fracture (GEN) Stand Alone Forms: General Discharge Information Follow-up/Referrals: Garcia Mcqueen MD [Physician] - 01/02/20 9:00 am Discharge Medications: New oxycodone-acetaminophen 5-325 mg Tablet 1 - 2 tablet PO Q4-6H PRN (Reas
--- NOTE | 2019-11-25 12:38 | PC.NURSE ---
Pt is A&O x 4. Pt has discharge orders. Pt has had IV removed, and discharge paperwork has been reviewed with both pt and her . Opportunities for questions was provided and both exhibited a good understanding of discharge instructions. Pt was assisted by staff to the front of the building, in a wheel chair and helped into the car.
== END 2019-11-25 12:40 | disposition home health service (06) | DRG 482 ==
LOC: ANHED 16:59 → ANH3MEDSUR 17:51
PROVIDERS: Admitting Provider Orthopaedic Surgery; Emergency Provider Emergency Medicine; PCP Family Medicine; Visit Provider Orthopaedic Surgery
PROC: 0QS734Z Reposition Left Upper Femur with Internal Fixation Device, Percutaneous Approach (ICD-10-PCS; principal; 2019-11-22 13:00)
DX: S72.012A Unspecified intracapsular fracture of left femur, initial encounter for closed fracture (principal); F41.8 Other specified anxiety disorders; F17.210 Nicotine dependence, cigarettes, uncomplicated; Z96.641 Presence of right artificial hip joint; W19.XXXA Unspecified fall, initial encounter
CPT/HCPCS: 36415; 71046; 73502; 80048; 85025; 85610; 85730; 96374; 97110; 97116; 97161; 97165; 97530; 97535; 99285; A9270; C1713; C1769; J0690; J1100; J1170; J2250; J2270; J2405; J2704; J3010; J7030; J7120

== ENCOUNTER 2020-02-16 09:51 | Outpatient (CLI) | payer MEDICARE, SELFPAY ==
--- NOTE | ~2020-02-16 | CT_ITS ---
EXAMINATION: CT hip LT wo con DATE: 02/16/2020 10:27 INDICATION: Left hip pain TECHNIQUE: High resolution computed tomography (CT) of the left hip was performed without intravenous contrast. Additional sagittal and coronal reconstructions were performed. Automated exposure control and iterative reconstruction technique were employed. The dose-length product was 220.68 mGy-cm. COMPARISON: Radiographs dated 11/21/2019 through 02/13/2020 FINDINGS: Again seen is lag screw fixation across a subcapital fracture of the proximal left femur. The fractur e appears to have healed with no evident linear lucency or sclerosis along the fracture line. The dis tobi tips of at least one and possibly 2 of the screws appear to project up to 1-2 mm beyond the corti leonora margin in the region of the fovea of the femoral head. This appears to have developed since the r ight breast on 01/02/2020. There is moderate osteoarthritis at the left hip joint space with nonunifor m joint space narrowing and prominent subarticular cystic change at the posterior inferior left aceta bulum. Small to moderate size marginal osteophytes along the rim of the acetabulum. Small left hip jeri int effusion. Severe disc height loss with vacuum phenomena and mild degenerative endplate changes at L5-S1. Multiple phleboliths in the left hemipelvis. Atherosclerotic calcification along the left te ac arteries. IMPRESSION: 1. Healing of a subcapital fracture of the proximal left femur with lag screw fixation. 2. Tip of one and possibly 2 of the leg screws projects minimally beyond the cortex at the fovea of t he femoral head. 3. Moderate left hip osteoarthritis which is been present since pelvis radiographs dated 05/31/2018. 4. Likely reactive small left hip joint effusion. 5. Severe spondylosis at L5-S1. Reviewed, dictated and finalized at location A. RNATIONAL ACCOUNTING MANAGER IMPRESSION: 1. Healing of a subcapital fracture of the proximal left femur with lag screw f ixation. 2. Tip of one and possibly 2 of the leg screws projects minimally beyond the co rtex at the fovea of the femoral head. 3. Moderate left hip osteoarthritis which is been present since pelvis radiogra phs dated 05/31/2018. 4. Likely reactive small left hip joint effusion. 5. Severe spondylosis at L5-S1.
== END 2020-02-16 09:52 | disposition home or self-care (01) ==
PROVIDERS: PCP Family Medicine; Visit Provider Orthopaedic Surgery
DX: M25.552 Pain in left hip (principal); M16.12 Unilateral primary osteoarthritis, left hip; M25.452 Effusion, left hip; M47.817 Spondylosis without myelopathy or radiculopathy, lumbosacral region; I70.8 Atherosclerosis of other arteries
CPT/HCPCS: 73700

== ENCOUNTER → 2020-04-10 00:13 | Outpatient (CLI) | payer MEDICARE, MEDICAID, SELFPAY ==
[2020-04-10 21:19] LABS: SARS-CoV-2 RNA PCR Negative
== END ==
PROVIDERS: PCP Family Medicine; Visit Provider Orthopaedic Surgery
DX: Z01.812 Encounter for preprocedural laboratory examination (principal); Z20.822 Contact with and (suspected) exposure to COVID-19
CPT/HCPCS: C9803; U0003; U0005

== ENCOUNTER 2020-04-13 00:43 | Day surgery (SDC) | payer MEDICARE, MEDICAID, SELFPAY ==
[2020-04-09 11:15] VITALS: BMI 19.4
[2020-04-13] VITALS (10 sets, daily range): BP systolic 91–142; BP diastolic 55–101; PULSE 69–116; RESP 12–28; TEMP 37.1–37.3; O2SAT 94–100
[2020-04-13] MEDS: ACETAMINOPHEN 500 MG TABLET 1000 MG PO (06:47)
[2020-04-13] MEDS: CELECOXIB 200 MG CAPSULE PO (06:47)
[2020-04-13] MEDS: LACTATED RINGERS 1,000 ML 30 ML IV CONT ×2 (06:50→09:08)
--- NOTE | 2020-04-13 06:51 | WPDANESEPPF ---
Anes - Initial Pre Proc Eval Procedure: Operation Date: 04/13/20 07:30 Proposed Procedures p Left Hip Removal Of Hardware - Garcia Mcqueen MD Date/Time: 04/13/20 06:51 Surgeon: Garcia Mcqueen MD Pre Op Diagnosis: Left Hip Painful Hardware Patient Data Age: 60 Gender: F Height: 1.78 m Weight: 61.36 kg Allergies Allergy/AdvReac Type Severity Reaction Status Date / Time Penicillins Allergy Severe Anaphylaxis Verified 04/13/20 06:42 Sulfa (Sulfonamide Allergy Severe Anaphylactic Verified 04/13/20 06:42 Antibiotics) Shock Home Medications Medication Instructions Recorded Confirmed Type escitalopram oxalate 30 mg PO DAILY 11/21/19 04/13/20 History trazodone 150 mg PO HS 11/21/19 04/13/20 History oxycodone-acetaminophen 5 mg-325 1 tablet PO Q6H PRN #28 tablet 03/09/20 04/09/20 Rx mg tablet chlorhexidine gluconate 4 % 1 applic TOPICAL ONCE #237 ml 03/19/20 04/13/20 Rx topical liquid tramadol 50 mg tablet 50 mg PO Q6H PRN #42 tablet 04/06/20 04/13/20 Rx ibuprofen 400 mg PO Q6H PRN 04/09/20 04/13/20 History Patient hx anesthesia problems: none Family hx anesthesia problems: none PMFSH Past Medical History Medical History Anxiety Depression HX: benign breast biopsy Left hip pain RSD (reflex sympathetic dystrophy) right hand, right arm Tobacco abuse Weight loss Surgical History Surgical History H/O breast biopsy x3 benign H/O right inguinal hernia repair H/O right wrist surgery History of right hip replacement Family History Family History Father Motor vehicle accident from collision Mother Motor vehicle accident both parents from motor vehicle accident when the patient was 8 years old Sibling Aneurysm Social History Social History Social History: the patient stated that she smokes less than a pack a cigarettes a day typically about 15 cigarettes. She has done this for about 20 years. She does smoke marijuana for the pain and anxiety. She is a social drinker. She is disabled. She has a significant other. She has 2 children. She does not have a durable power banking attorney for healthcare and she is a full code. Smoking packs per day: 0.5 Smoking cigarettes per day: 10.0 Years smoked: 25 Smoking pack-years: 12.50 Smoking status: Current every day smoker Tobacco type: cigarettes Smoking end date: 02/23/17 Additional smoking assessment comments: STATES TRYING TO QUIT DOWN TO ABOUT 5 CIGARETTES/DAY FROM PK/DAY/20+YRS Alcohol intake: current Drinks per week: 3 Substance use: never Substance use type: does not use Spiritual care concerns: No Anes - Eval Final PreProcedure Day of Procedure 04/13/20 06:51 Patient weight: thin Heart: regular rate and rhythm Lungs: clear to auscultation and normal air movement Airway: Mallampati scale class II Neurological: alert and oriented Last oral intake: >/= 8 hours ASA classification: III Emergent: no Anesthetic plan: proceed Anesthesia type and monitoring: general ETT and standard monitoring Informed Consent: The patient's anesthetic plan and its attendant risks and benefits were discussed with the patient/family/POA. Questions were solicited and answers provided to the satisfaction of the patient/family/POA.
--- NOTE | 2020-04-13 07:15 | WPDHPUPDATE1 ---
History and Physical Update Update Date/Time: 04/13/20 07:15 History and Physical has been reviewed, including an updated exam of the patient. There are NO changes in the patient's condition. Risks, benefits, and alternatives have been discussed and questions answered. Patient agrees to proceed with procedure.
--- NOTE | 2020-04-13 07:16 | WPDHPUPDATE1 ---
History and Physical Update Update Date/Time: 04/13/20 07:16 History and Physical has been reviewed, including an updated exam of the patient. There are NO changes in the patient's condition. Risks, benefits, and alternatives have been discussed and questions answered. Patient agrees to proceed with procedure.
[2020-04-13] MEDS: FAMOTIDINE 20 MG/2 ML VIAL IV PUSH (07:23)
--- NOTE | 2020-04-13 07:24 | SUR.PREOP ---
0705-OFFERED BATHROOM VISIT, PT DECLINED NEED TO VOID.
[2020-04-13] MEDS: CLINDAMYCIN 900 MG/D5W 50 ML 900 MG/50 ML PIGGYBACK 50 MG IVPB (07:29)
[2020-04-13] MEDS: BUPIVACAINE HCL 0.5% PF 30 ML VIAL INFILTRATE (07:55)
--- NOTE | 2020-04-13 08:32 | PM.PROC ---
Procedure Note - Detailed Date of procedure: 04/13/20 Pre-op diagnosis: Left Hip Painful Hardware Post-op diagnosis: same Procedure performed: REMOVAL OF HARDWARE LEFT HIP Description of procedure: THE PATIENT WAS TAKEN TO THE OR AND PLACED UNDER GENERAL ANESTHESIA THEN INTUBATED. THE LEFT LOWER EXTREMITY WAS PREPPED AND DRAPED IN THE USUAL STERILE MANOR. AN INCISION WAS MADE ALONG THE LATERAL ASPECT OF THE HIP OVER THE OLD INCISION AND THE DISSECTION CONTINUED DOWN TO BONE. THE 3 SCREWS WERE VISUALIZED AND REMOVED IN THEIR ENTIRETY. THE WOUND WAS WASHED THOROUGHLY. THE BLEEDERS WERE CAUTERIZED. THE FASCIAL AND SUB CUTANEOUS LAYERS WERE CLOSED WITH O AND 2-O VICRYL RESPECTIVELY THEN THE SKIN WAS APPROXIMATED WITH A QUIL TYPE BARBED 3-0 SUTURE, DERMABOND WAS PLACED THEN A STERILE DRESSING WAS APPLIED. THE PATIENT WAS EXTUBATED AND SENT TO THE RECOVERY ROOM. Anesthesia: GETA Surgeon: Garcia Mcqueen MD Estimated blood loss (mL): 10 Complications: No immediate complications Condition: stable Disposition: PACU
[2020-04-13] MEDS: fentaNYL CITRATE INJ (*CRX) 100 MCG/2 ML VIAL 25 MCG IV PUSH ×8 (09:00→09:16)
[2020-04-13] MEDS: HYDROmorphone HCL INJ (*CRX) 1 MG/ML SYR 0.5 MG IV PUSH ×4 (09:24→09:39)
[2020-04-13] MEDS: oxyCODONE HCL (*CRX) 5 MG TAB IR PO (09:59)
== END 2020-04-13 10:50 | disposition home or self-care (01) ==
PROVIDERS: PCP Family Medicine; Visit Provider Orthopaedic Surgery
PROC: (CPT 20680; principal; 2020-04-13 07:30)
DX: T85.848A Pain due to other internal prosthetic devices, implants and grafts, initial encounter (principal); M25.552 Pain in left hip; Y83.8 Other surgical procedures as the cause of abnormal reaction of the patient, or of later complication, without mention of misadventure at the time of the procedure; F41.8 Other specified anxiety disorders; G90.511 Complex regional pain syndrome I of right upper limb; F17.210 Nicotine dependence, cigarettes, uncomplicated; F12.90 Cannabis use, unspecified, uncomplicated
CPT/HCPCS: 20680; A9270; J1100; J1170; J2250; J2405; J2704; J3010; J7120

== ENCOUNTER 2021-01-14 10:12 | Outpatient (CLI) | payer MEDICARE, SELFPAY ==
--- NOTE | 2021-01-14 11:14 | ECG_ITS ---
Measurements Intervals [place] Rate: 58 P: 57 WY: 133 QRS: 93 QRSD: 78 T: 43 QT: 412 QTc: 407 Interpretive Statements SINUS BRADYCARDIA RIGHT AXIS DEVIATION BORDERLINE R WAVE PROGRESSION, ANTERIOR LEADS BASELINE ARTIFACT- I, II, III, AVR, AVL, AVF, V1, V3-V6 BORDERLINE ECG Electronically Signed On 01-14-2021 11:39:40 POLICE RESERVES COMMANDER by Lew Smyth D.O.
[2021-01-14 12:00] LABS: Basophils Percent Auto 0.6 % (0.2-1.2); Eosinophils Absolute Auto 0.1 K/mm3 (0-0.3); Hematocrit 42.6 % (37.0-47.0); Hemoglobin 13.9 g/dL (12.0-15.0); Immature Granulocyte Absolute 0.03 K/mm3 (0.00-0.031); Immature Granulocyte Percent A 0.4 % (0-0.5); Lymphocytes Absolute Auto 2.29 K/mm3 (0.9-3.2); Lymphocytes Percent Auto 32.2 % (18.3-44.2); Mean Corpuscular HGB Conc 32.6 g/dl (32-36); Mean Corpuscular Hemoglobin 33.3 pg (26-34); Mean Corpuscular Volume 102.2 fl (80-100); Mean Platelet Volume 10.6 fl (7.4-10.4); Monocytes Absolute Auto 0.4 K/mm3 (0.1-0.6); Monocytes Percent Auto 6.2 % (2.6-8.5); Neutrophils Absolute Auto 4.2 K/mm3 (1.3-6.7); Neutrophils Percent Auto 59.6 % (45.5-73.1); Platelet Count Result 186 k/mm3 (150-375); Red Blood Count 4.17 M/mm3 (4.2-5.4); White Blood Count 7.1 K/mm3 (4.5-10.0)
[2021-01-14 12:03] LABS: Add Urine Microscopic? NO; Appearance Urine Clear (Clear); Bilirubin Urine Negative (Negative); Blood Urine Negative (Negative); Color Urine Straw (Yellow); Glucose Urine UA Negative (Negative); Ketones Urine Negative (Negative); Leukocyte Esterase Ur Negative LEU/UL (Negative); Nitrate Urine Negative (Negative); Protein Urine Negative (Negative); Specific Grav Ur 1.008 (1.001-1.035); Urobilinogen Urine Negative mg/dL (<2.0)
[2021-01-14 12:07] LABS: Albumin Level 4.3 g/dL (3.5-5.1); Anion Gap 3 mmol/L (8-16); Blood Urea Nitrogen 12 mg/dL (7-17); Calcium 9.5 mg/dL (8.4-10.2); Carbon Dioxide 34 mmol/L (22-30); Chloride 100 mmol/L (98-107); Estimated Glomerular Filt Rate > 60; Glucose 108 mg/dL (65-110); Potassium 4.2 mmol/L (3.4-5.0); Sodium 137 mmol/L (137-145)
[2021-01-14 12:10] LABS: Hemoglobin A1C 5.2 % (<5.7)
[2021-01-14 12:11] LABS: Urine Cotinine NEGATIVE
[2021-01-14 12:21] LABS: INR 0.9; Prothrombin Time 12.3 Seconds (11.1-14.7)
[2021-01-14 12:22] LABS: Partial Thromboplastin Time 31.5 SECONDS (22.3-36.8)
== END 2021-01-14 10:13 | disposition home or self-care (01) ==
LOC: ANHSURGERY 10:17
PROVIDERS: PCP Family Medicine; Visit Provider Orthopaedic Surgery
DX: M16.12 Unilateral primary osteoarthritis, left hip (principal); Z01.818 Encounter for other preprocedural examination
CPT/HCPCS: 80048; 80307; 81003; 82040; 83036; 85025; 85610; 85730; 86850; 86900; 86901; 87081; 93005

== ENCOUNTER → 2021-01-19 00:01 | Outpatient (CLI) | payer MEDICARE, SELFPAY ==
[2021-01-19 19:57] LABS: SARS-CoV-2 RNA PCR Negative
== END ==
PROVIDERS: PCP Family Medicine; Visit Provider Orthopaedic Surgery
DX: Z01.812 Encounter for preprocedural laboratory examination (principal); Z20.822 Contact with and (suspected) exposure to COVID-19
CPT/HCPCS: C9803; U0003; U0005

== ENCOUNTER 2021-01-22 01:19 | Day surgery (SDC) | payer MEDICARE, SELFPAY ==
[2021-01-14 10:26] VITALS: BMI 20.9
--- NOTE | 2021-01-14 10:49 | PC.NURSE ---
Report to the Outpatient Waiting Room, entrance under the green pavilion located off [facility], at time __0600 on date _01/22/21 . OR Time: _0730 . - You and your visitor will be asked a series of questions to screen for COVID 19 for your protection. - A mask is required within the hospital. - Only one visitor is allowed at this time. Patient visitors will be guided where to wait when not with patient. Preoperative COVID Testing Requirements: No COVID Test needed if: (proof is required; if not received patient will have Rapid Test prior to entry) - Patient has received COVID Vaccine at least 14 days prior to procedure date or COVID TESTING 01/19/21 AT 0830 - Patient has positive COVID test result within last 90 days of surgery date. COVID Test needed if above criteria is not met If not COVID vaccinated a COVID test must be conducted within 72 hours of surgery and patient is asked to isolate self from time of testing until procedure. You will go to the [facility] for your COVID testing. The [facility] is located at the corner of [address] [facility]. You will only be called if COVID results are positive and your surgeon may reschedule your elective surgery date. Patients may have clear liquids (water, carbonated beverages, clear teas, apple juice) until 3 hours prior to surgery with a maximum of 20 ounces. - No food from midnight until time of surgery - Infants may have breast milk until 4 hours before surgery, infant formula 6 hours prior to surgery. - Children will be allowed to drink immediately following surgery. If applicable, please bring a bottle or sippy cup to assist with drinking. Juice, water, soda, and popsicles are readily available. For infants on formula, please bring formula the day of surgery. Pacifiers are allowed. Take the following medications with a SIP of water the morning of surgery: _LEXAPRO,PAIN PILL Medications to discontinue per physician __IBUPROFEN PER DR [place]. ALL VITAMINS AND SUPPLEMENTS 3 DAYS PRE OP Date to take last dose___01/18/21 Please no make-up, nail chilean, hairspray, perfume, deodorant, or body powder the day of surgery. No jewelry (including any body piercings) or valuables the day of surgery, leave them at home. Please take a shower or bath the night before, or the morning of, surgery with an antibacterial soap. Wear comfortable, loose fitting clothing. Children are encouraged to wear pajamas. - Jewelry must be removed prior to entering the operating room. Rings and piercings that are not removed may be cut off. - The hospital will not accept responsibility for valuables. - Please leave all valuables, including medications, at home the day of surgery. If you are going home after surgery, a licensed motorcycle delivery driver must drive you home. - NO public transportation without another adult. - We recommend that an adult stay with you for 24 hours following discharge. - We also recommend that you do not drive, make important decision, drink alcoholic beverages, or take any drugs that were not prescribed by your health care provider for at least 24 hours after your discharge time. For Pediatric surgeries, we recommend two adults accompany the child home (only one inside the building at this time). Follow any additional instructions given to you from your surgeon. VERBAL instructions given to __PATIENT and asked if any additional questions and then verbalized understanding. Patient advised to call surgeon office or pre surgery nurse liaison [phone] if any additional questions.
[2021-01-14 11:10] VITALS: BP 123/62; PULSE 61; RESP 16; TEMP 36.7; O2SAT 98
--- NOTE | 2021-01-21 13:45 | PCCCNOTE ---
Addendum entered by Vanita Kelsey RN 01/21/21 15:26: [address] Mcqueen's office sw Nasreen, advised that this healthcare financial analyst is awaiting a follow up call about authorization for patient's surgery. Nasreen is reading notes and says that auth is pending but she does not have access to all the medical office representative notes. Asked if healthcare financial analyst could speak with real estate assistant but she says that they are in clinic. Nasreen states that she will put a task in and they will call me. Provided call back number. [id number] s/w central supply manager Juliana Neumann she reviews all notes/ registration/ echart and [facility], and emails Letty Mcmillan. Original Note: [id number], called to Dr. Mcqueen's office s/w Crystal advised that per pre-registration notes, mbr active with [facility] and per notes prior auth is required. She states that she will work on it now. Called back to office and spoke with Tammie, read the notes from pre-registration and she states that she will find the auth or will get it. Provided care coordinators phone number for a return call- [phone].
[2021-01-22] VITALS (20 sets, daily range): BP systolic 88–146; BP diastolic 44–99; PULSE 62–90; RESP 10–20; TEMP 36.6–37.2; O2SAT 95–100
--- NOTE | ~2021-01-22 | XR_ITS ---
EXAMINATION: XR hip LT min 2V DATE: 01/22/2021 10:15 INDICATION: Left hip arthroplasty TECHNIQUE: 2 views left hip FINDINGS: There is a left total hip arthroplasty in expected position. Subcutaneous gas with soft ti ssue swelling are consistent with recent surgery. IMPRESSION: 1. Recent left total hip arthroplasty. Reviewed, dictated and finalized at location B. Y CONTROL OPERATOR
[2021-01-22] MEDS: LACTATED RINGERS 1,000 ML 30 ML IV CONT ×3 (06:30→11:50)
[2021-01-22] MEDS: ACETAMINOPHEN 500 MG TABLET 1000 MG PO (06:37)
[2021-01-22] MEDS: TRANEXAMIC ACID 1,000MG/ISO100 1,000 MG/100 ML BAG 200 MG IVPB (06:53)
--- NOTE | 2021-01-22 07:08 | WPDANESEPPF ---
Anes - Initial Pre Proc Eval Procedure: Operation Date: 01/22/21 07:30 Proposed Procedures p Left Total Hip Arthroplasty - Garcia Mcqueen MD Date/Time: 01/22/21 07:08 Surgeon: Garcia Mcqueen MD Pre Op Diagnosis: left hip DJD Patient Data Age: 61 Gender: F Height: 1.78 m Weight: 62.2 kg Last Vital Signs Temp 36.7 C 01/14/21 11:10 Pulse 61 01/14/21 11:10 Resp 16 01/14/21 11:10 BP 123/62 01/14/21 11:10 Pulse Ox 98 01/14/21 11:10 Allergies Allergy/AdvReac Type Severity Reaction Status Date / Time Penicillins Allergy Severe Anaphylaxis Verified 01/22/21 06:08 Sulfa (Sulfonamide Allergy Unknown Anaphylactic Verified 01/22/21 06:08 Antibiotics) Shock,Anaphylactic Shock Home Medications Medication Instructions Recorded Confirmed Type escitalopram oxalate 30 mg PO DAILY 11/21/19 01/22/21 History trazodone 150 mg PO HS 11/21/19 01/22/21 History chlorhexidine gluconate 4 % 1 applic TOPICAL ONCE #237 ml 11/28/20 01/14/21 Rx topical liquid tramadol 50 mg tablet 50 mg PO Q6H PRN #50 tablet 01/07/21 01/22/21 Rx PNV cmb#95-ferrous fumarate-FA 1 tablet PO DAILY 01/14/21 01/22/21 History [] ibuprofen 800 mg PO Q6H PRN 01/14/21 01/22/21 History Patient hx anesthesia problems: post op nausea/vomiting Family hx anesthesia problems: none Results Review: All pre-operative results and documents have been reviewed as part of the pre-operative evaluation. [facility] Past Medical History Medical History Anxiety Degenerative joint disease (DJD) of hip Depression HX: benign breast biopsy Left hip pain RSD (reflex sympathetic dystrophy) right hand, right arm Tobacco abuse Weight loss Surgical History Surgical History H/O breast biopsy x3 benign H/O right inguinal hernia repair H/O right wrist surgery History of right hip replacement Family History Family History Father Motor vehicle accident from collision Mother Motor vehicle accident both parents from motor vehicle accident when the patient was 8 years old Sibling Aneurysm Social History Social History Social History: The pt. stated that she has stopped smoking at this time but did state she took to puffs off her daughters vape pin on Thursday01/12/2021 Smoking packs per day: 0.5 Smoking cigarettes per day: 10.0 Years smoked: 25 Smoking pack-years: 12.50 Smoking status: Former smoker Tobacco type: cigarettes Smoking end date: 11/23/20 Additional smoking assessment comments: STATES 01/12/21 TOOK TWO DRAGS OFF DAUGHTER VAPE PEN Alcohol intake: current Drinks per week: 3 Alcohol use details: 4-5 on weekends Substance use: never Substance use type: does not use Living arrangements: alone Spiritual care concerns: No Anes - Eval Final PreProcedure Day of Procedure 01/22/21 07:08 Patient weight: normal Heart: regular rate and rhythm Lungs: decreased breath sounds Airway: Mallampati scale class II Neurological: alert and oriented Last oral intake: >/= 8 hours ASA classification: III Emergent: no Anesthetic plan: proceed Anesthesia type and monitoring: general ETT and standard monitoring Results Review: All pre-operative results and documents have been reviewed as part of the pre-operative evaluation. Informed Consent: The patient's anesthetic plan and its attendant risks and benefits were discussed with the patient/family/POA. Questions were solicited and answers provided to the satisfaction of the patient/family/POA.
--- NOTE | 2021-01-22 07:14 | WPDHPUPDATE1 ---
History and Physical Update Update Date/Time: 01/22/21 07:14 History and Physical has been reviewed, including an updated exam of the patient. There are NO changes in the patient's condition. Risks, benefits, and alternatives have been discussed and questions answered. Patient agrees to proceed with procedure.
[2021-01-22] MEDS: SCOPOLAMINE 1.5 MG PATCH TRANSDERM (07:18)
[2021-01-22] MEDS: ceFAZolin 2 GM/D5W 50 ML 2 GM/50 ML BAG IVPB ×3 (07:20→21:58)
[2021-01-22] MEDS: TRANEXAMIC ACID 1,000 MG/10 ML AMPUL 1000 MG IV PUSH (09:37)
[2021-01-22] MEDS: fentaNYL CITRATE INJ (*CRX) 100 MCG/2 ML VIAL 25 MCG IV PUSH ×8 (10:10→11:20)
--- NOTE | 2021-01-22 10:13 | W.PM.PROC2 ---
Procedure Note - Detailed Date of Procedure 01/22/21 Pre-op Diagnosis left hip DJD Post-op Diagnosis same Procedure Performed L LUCAS Surgeon Garcia Mcqueen MD Anesthesia general Description of Procedure THE PATIENT WAS TAKEN TO THE OPERATING ROOM IN STABLE CONDITION AND WAS PLACED IN THE LATERAL DECUBITUS AND THE LEFT LOWER EXTREMITY WAS PREPPED AND DRAPED IN THE STERILE FASHION. INCISION WAS MADE IN THE POSTERIOR LATERAL SIDE OF THE HIP, DOWN TO THE FASCIA LAYER. THE FASCIA WAS INCISED. THE HIP WAS EXPOSED. THE SHORT EXTERNAL ROTATORS WERE EXPOSED. THE SCIATIC NERVE WAS IDENTIFIED. INCISION WAS MADE THROUGH THE SHORT EXTERNAL ROTATORS AND THE CAPSULE OF THE HIP JOINT. THE HIP WAS DISLOCATED. AN OSTEOTOMY WAS MADE TO THE FEMORAL NECK ABOUT 1 CM PROXIMAL TO THE LESSER TROCHANTER. THE ACETABULUM WAS EXPOSED. THERE WAS SEVERE DJD SEEN. BEGINNING WITH A 46 REAMER THE ACETABULUM WAS REAMED TO 53 MM. A 53 MM TRIAL WAS PLACED IN 35 DEG OF ABDUCTION AND ANTEVERSION WAS IN ALIGNMENT WITH THE TRANS ACETABULAR LIGAMENT. THE FIT WAS EXCELLENT. THE TRIAL WAS REMOVED. A 54 MM BIOMET G7 COMPONENT WAS THEN TAPPED IN TO PLACE IN 35 DEG OF ABDUCTION AND ANTEVERSION IN ALIGNMENT WITH THE TRANSVERSE ACETABULAR LIGAMENT. 2 SCREWS WERE PLACED WITH GOOD PURCHASE. THE FIT WAS EXCELLENT. THE ACETABULAR LINER WAS PLACED AND CHECKED FOR STABILITY. NEXT THE FEMUR WAS PREPARED WITH INITIAL CANAL FINDER THEN SEQUENTIAL BROACHING WITH A TAPERLOC HIP SYSTEM, UNTIL A 12 BROACH FIT WELL IN 15 OF ANTEVERSION. A 0 HIGH OFFSET NECK WITH 36 MM HEAD TRIAL WAS PLACED. THE SHUCK TEST WAS EXCELLENT AND THE STABILITY IN FLEXION AND ROTATION WAS EXCELLENT. LEG LENGTHS WERE GROSSLY EQUAL. TRIALS WERE REMOVED. A BIOMET TAPERLOC 12 STEM WAS PLACED WITH A HIGH OFFSET NECK THE FIT WAS EXCELLENT IN 15 DEG OF ANTEVERSION. A 0 CERAMIC 36 MM FEMORAL CERAMIC HEAD WAS PLACED. THE HIP WAS TRIALED AND THE STABILITY WAS EXCELLENT WERE THE LEG LENGTHS AND THE SHUCK TEST. THE WOUND WAS IRRIGATED WITH STERILE BETADINE AND WATER FOR 3 MIN. THEN WASHED AGAIN. THE CAPSULE AND THE EXTERNAL ROTATORS WERE APPROXIMATED WITH NUMBER 1 VICRYL. THE FASCIA WITH No 2 QUIL AND THE SUB CUTANEOUS LAYER WITH 2-0 ABSORBABLE SUTURE WITH A RUNNING 3-0 SUBCUTICULAR LAYER WELL. DERMABOND WAS PLACED AND STERILE DRESSING WAS APPLIED. PATIENT WAS PLACED BACK ON TO THE SUPINE POSITION AND WAS EXTUBATED Estimated Blood Loss -630.0 Complications No immediate complications Condition stable Disposition PACU
--- NOTE | 2021-01-22 10:14 | SUR.PHASEI ---
1011 xrays left hip done.
[2021-01-22] MEDS: diazePAM INJ (*CRX) 10 MG/2 ML SYRINGE 5 MG IV PUSH (10:44)
[2021-01-22] MEDS: HYDROmorphone HCL INJ (*CRX) 1 MG/ML SYR IV PUSH ×5 (11:27→14:04)
--- NOTE | 2021-01-22 11:27 | SUR.PHASEI ---
[address] muse about pain 1010 with maximum fentanyl given,,orders received for dilaudid.
[2021-01-22] MEDS: ONDANSETRON INJ 4 MG/2 ML VIAL IV PUSH (11:33)
--- NOTE | 2021-01-22 12:07 | SUR.PHASEI ---
1207 pt transferred to op recovery. per oni.report to jennifer herman.
--- NOTE | 2021-01-22 13:08 | SUR.PHASEI ---
FOOD TRAY ORDERED AND DELIVERED. DR. TIPTON IN TO SEE PT. PATIENT NOW EATING LUNCH. PHYSICAL THERAPIST HERE TO WORK WITH PATIENT. PATIENT STATES SHE LIVES ALONE.
--- NOTE | 2021-01-22 14:50 | ADMGEN ---
This patient, Saray Middleton, was admitted to Medical Room 244-. Patient/family oriented to hospital policies and general routines including ID bracelet, bed and alarms, visiting hours, pain management, procedures, bathroom and other care routines, personal items, smoking policy, room service/diet, and visiting hours. Information on how to activate the Rapid Response Team has been discussed. Patient/Family are encouraged to report perceived risks to care and to ask questions if they do not understand what they are told or what they should do.
[2021-01-22] MEDS: HYDROcodone/acetaminophen (*CRX) 7.5-325 MG TABLET 1 TAB PO ×2 (15:07→20:18)
[2021-01-22] MEDS: diazePAM (*CRX) 5 MG TABLET PO ×2 (16:51→22:48)
[2021-01-22] MEDS: SENNA/DOCUSATE SODIUM TABLET 2 TAB PO (16:52)
[2021-01-22] MEDS: MORPHINE SULFATE (*CRX) 4 MG/ML INJ 3 MG IV PUSH ×2 (18:02→21:26)
[2021-01-22] MEDS: FAMOTIDINE 20 MG TABLET PO (20:20)
[2021-01-22] MEDS: traZODone HCL 50 MG TABLET 150 MG PO (20:20)
[2021-01-23 00:04] VITALS: BP 98/51; PULSE 63; RESP 18; TEMP 36.9; O2SAT 98
[2021-01-23] MEDS: HYDROcodone/acetaminophen (*CRX) 7.5-325 MG TABLET 1 TAB PO ×3 (00:10→17:49)
[2021-01-23 04:18] VITALS: BP 96/40; PULSE 67; RESP 20; TEMP 36.9; O2SAT 96
[2021-01-23 05:59] LABS: Basophils Percent Auto 0.4 % (0.2-1.2); Eosinophils Absolute Auto 0.1 K/mm3 (0-0.3); Eosinophils Percent Auto 1.3 % (0-4.4); Hematocrit 30.2 % (37.0-47.0); Immature Granulocyte Absolute 0.02 K/mm3 (0.00-0.031); Immature Granulocyte Percent A 0.4 % (0-0.5); Immature Platelet Fraction Pct 4.6 % (0.9-11.2); Lymphocytes Absolute Auto 1.94 K/mm3 (0.9-3.2); Lymphocytes Percent Auto 34.8 % (18.3-44.2); Mean Corpuscular HGB Conc 33.1 g/dl (32-36); Mean Corpuscular Hemoglobin 32.6 pg (26-34); Mean Corpuscular Volume 98.4 fl (80-100); Mean Platelet Volume 10.7 fl (7.4-10.4); Monocytes Absolute Auto 0.7 K/mm3 (0.1-0.6); Monocytes Percent Auto 11.8 % (2.6-8.5); Neutrophils Absolute Auto 2.9 K/mm3 (1.3-6.7); Neutrophils Percent Auto 51.3 % (45.5-73.1); Platelet Count Result 140 k/mm3 (150-375); Red Blood Count 3.07 M/mm3 (4.2-5.4); Red Cell Distribution Width 12.9 % (11.5-14.5); White Blood Count 5.6 K/mm3 (4.5-10.0)
[2021-01-23 06:01] LABS: Anion Gap 2 mmol/L (8-16); Blood Urea Nitrogen 11 mg/dL (7-17); Calcium 8.7 mg/dL (8.4-10.2); Carbon Dioxide 33 mmol/L (22-30); Chloride 102 mmol/L (98-107); Estimated CRCL calculation 73 ml/min; Estimated Glomerular Filt Rate > 60; Glucose 109 mg/dL (65-110); Potassium 3.9 mmol/L (3.4-5.0); Sodium 137 mmol/L (137-145)
[2021-01-23] MEDS: ceFAZolin 2 GM/D5W 50 ML 2 GM/50 ML BAG IVPB (06:03)
[2021-01-23] MEDS: diazePAM (*CRX) 5 MG TABLET PO ×2 (06:41→14:41)
[2021-01-23] MEDS: MORPHINE SULFATE (*CRX) 4 MG/ML INJ 3 MG IV PUSH ×3 (08:24→15:11)
[2021-01-23] MEDS: ONDANSETRON INJ 4 MG/2 ML VIAL IV PUSH (08:25)
[2021-01-23] MEDS: ESCITALOPRAM OXALATE 10 MG TABLET 30 MG PO (09:27)
[2021-01-23] MEDS: ASPIRIN 325 MG ENTERIC TABLET 650 MG PO (09:27)
[2021-01-23] MEDS: SENNA/DOCUSATE SODIUM TABLET 2 TAB PO ×2 (09:27→16:59)
[2021-01-23] MEDS: polyethylene glycoL 3350 17 GM POWD.PACK PO (09:27)
[2021-01-23] MEDS: FAMOTIDINE 20 MG TABLET PO (09:28)
[2021-01-23 09:42] VITALS: BP 102/69; PULSE 67; RESP 16; TEMP 37.1; O2SAT 97
--- NOTE | 2021-01-23 16:08 | PM.PNORT ---
Progress Note: A&P Additional Plan POD 1 DOING WELL. OK TO DC HOME F/U IN 3 WEEKS. Subjective Subjective Date/Time Seen: 01/23/21 16:08 POD 1 DOING WELL. WALKING WITH PT AND STABLE. NO NEW C/O. NO CALF PAIN Review of Systems Review of Systems: All systems reviewed & are unremarkable except as noted in HPI and below Exam Extrem: Other: VSS AFEBRILE DRESSING DRY NV INTACT NEG HOMANS SIGN, CALF SOFT NON TENDER. Objective Data Vital Signs Vital Signs: Vital Signs - 24 hr 01/22/21 16:45 01/22/21 20:29 01/23/21 00:04 Temperature 36.6 C 37.2 C 36.9 C Pulse Rate 76 62 63 Respiratory Rate 16 20 18 Blood Pressure 104/85 102/48 L 98/51 L Pulse Oximetry 98 98 98 01/23/21 04:18 01/23/21 09:42 Temperature 36.9 C 37.1 C Pulse Rate 67 67 Respiratory Rate 20 16 Blood Pressure 96/40 L 102/69 Pulse Oximetry 96 97 Intake/Output Intake/Output: Intake & Output 01/20/21 01/21/21 01/22/21 01/23/21 23:59 23:59 23:59 23:59 Intake Total 1777 1270 Balance 1777 1270 Meds/Results Medications: Active Medications Generic Name Dose Route Start Last Admin Trade Name Freq PRN Reason Stop Dose Admin Acetaminophen 650 mg 01/22/21 14:44 Acetaminophen 325 Mg Tablet PO Q6H PRN Mild Pain (1-3) or Fever Hydrocodone Bitart/Acetaminophen 1 tab 01/22/21 14:44 01/23/21 05:46 Hydrocodone/Acetaminophen (*Crx) 7.5-325 Mg Tablet PO 1 tab Q3H PRN Administration Pain Rated 4-6 Aspirin 650 mg 01/23/21 09:00 01/23/21 09:27 Aspirin 325 Mg Enteric Tablet PO 650 mg DAILY BILL Administration Diazepam 5 mg 01/22/21 14:44 01/23/21 14:41 Diazepam (*Crx) 5 Mg Tablet PO 5 mg Q6H PRN Administration Anxiety/Muscle Spasm Escitalopram Oxalate 30 mg 01/23/21 09:00 01/23/21 09:27 Escitalopram Oxalate 10 Mg Tablet PO 30 mg DAILY BILL Administration Famotidine 20 mg 01/22/21 21:00 01/23/21 09:28 Famotidine 20 Mg Tablet PO 20 mg Q12HR BILL Administration Hydroxyzine HCl 50 mg 01/22/21 14:44 Hydroxyzine Hcl 25 Mg Tablet PO Q4H PRN Itching Magnesium Hydroxide 30 ml 01/22/21 14:44 Magnesium Hydroxide Susp 30 Ml Udc PO BID PRN Constipation Morphine Sulfate 3 mg 01/22/21 14:44 01/23/21 15:11 Morphine Sulfate (*Crx) 4 Mg/Ml Inj IV PUSH 3 mg Q3H PRN Administration Pain Rated 7-10 Naloxone HCl 0.1 mg 01/22/21 14:44 Naloxone Hcl 0.4 Mg/Ml Vial IV PUSH Q2M PRN Opiate Reversal Ondansetron HCl 4 mg 01/22/21 14:44 01/23/21 08:25 Ondansetron Inj 4 Mg/2 Ml Vial IV PUSH 4 mg Q4H PRN Administration Nausea And Vomiting Polyethylene Glycol 17 gm 01/23/21 09:00 01/23/21 09:27 Polyethylene Glycol 3350 17 Gm Powd.Pack PO 17 gm QAM BILL Administration Senna/Docusate Sodium 2 tab 01/22/21 17:00 01/23/21 09:27 Senna/Docusate Sodium Tablet PO 2 tab BID BILL Administration Trazodone HCl 150 mg 01/22/21 21:00 01/22/21 20:20 Trazodone Hcl 50 Mg Tablet PO 150 mg HS BILL Administration Radiology Results: ITS Impressions Hip X-Ray 01/22/21 10:15 IMPRESSION: 1. Recent left total hip arthroplasty. Labs Labs: Laboratory Results - last 24 hr 01/23/21 01/23/21 05:27 05:27 WBC 5.6 RBC 3.07 L Hgb 10.0 L D Hct 30.2 L MCV 98.4 MCH 32.6 MCHC 33.1 RDW 12.9 Plt Count 140 L MPV 10.7 H Immature Gran % (Auto) 0.4 Neut % (Auto) 51.3 Lymph % (Auto) 34.8 [place] % (Auto) 11.8 H Eos % (Auto) 1.3 Baso % (Auto) 0.4 Lymph # (Auto) 1.94 Winn # (Auto) 0.7 H Eos # (Auto) 0.1 Baso # (Auto) 0.0 Abs Immat Gran (auto) 0.02 Absolute Neuts (auto) 2.9 Absolute Nucleated RBC 0.0 Nucleated RBC % 0.0 % Immature Plt Fraction 4.6 Sodium 137 Potassium 3.9 Chloride 102 Carbon Dioxide 33 H Anion Gap 2 L BUN 11 Creatinine 0.70 Estim Creat Clear Calc 73 Estimated GFR > 60 Glucose 109 Calcium 8.7
--- NOTE | 2021-01-23 16:10 | PM.DS ---
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 SHE UNDERWENT SURGERY AND DID VERY WELL. POSTOP SHE DID WELL WITH PT AND WAS TAKING GOOD PO AND WAS STABLE. SHE WILL DC TO HOME, WITH A REGULAR DIET AND F/U IN 3 WEEKS. SHE WILL HAVE ASA FOR DVT PROPHYLAXIS. Time spent discussing smoking cessation with patient: more than 10 minutes Status at Discharge Functional status at discharge: uses cane/walker Overall status at discharge: patient is progressing back to baseline Time Spent with Patient Time attestation: Total time spent providing and/or coordinating discharge services: DS: Data Data Completed and Pending Labs on day of discharge: Labs from last 24 hours 01/23/21 01/23/21 05:27 05:27 WBC 5.6 RBC 3.07 L Hgb 10.0 L D Hct 30.2 L MCV 98.4 MCH 32.6 MCHC 33.1 RDW 12.9 Plt Count 140 L MPV 10.7 H Immature Gran % (Auto) 0.4 Neut % (Auto) 51.3 Lymph % (Auto) 34.8 [place] % (Auto) 11.8 H Eos % (Auto) 1.3 Baso % (Auto) 0.4 Lymph # (Auto) 1.94 [place] # (Auto) 0.7 H Eos # (Auto) 0.1 Baso # (Auto) 0.0 Abs Immat Gran (auto) 0.02 Absolute Neuts (auto) 2.9 Absolute Nucleated RBC 0.0 Nucleated RBC % 0.0 % Immature Plt Fraction 4.6 Sodium 137 Potassium 3.9 Chloride 102 Carbon Dioxide 33 H Anion Gap 2 L BUN 11 Creatinine 0.70 Estim Creat Clear Calc 73 Estimated GFR > 60 Glucose 109 Calcium 8.7 Discharge Plan Discharge Patient Disposition: Home Health Service Discharge Instructions: Post Op Total Hip Replacement Instructions Dr. Garcia Mcqueen [phone] ? Your dressing will be changed prior to your discharge. You will be sent home with one additional dressing to be changed in 5 days by the home health RN. Your incision was closed with dermabond, allow the dermabond to fall off naturally and do not disrupt incision healing. ? You may shower with your dressing but do not submerge in a bath tub. ? Do not drive or operate machinery until you are released by Dr. Mcqueen. ? Do not walk without a walker for any reason until you are released by Dr. Mcqueen. ? Continue to apply ice to the hip intermittently for additional pain relief. Protect your skin with a towel or pillow case. ? Continue to follow strict total hip replacement precautions. ? Your follow up appointment is indicated in your discharge instructions. ? Your medications have been sent to your pharmacy. ? Please contact our office with any questions/concerns regarding your hip at [phone]. Per Care Coordination: [facility] has been arranged to follow at discharge. [facility] will contact you prior to their first visit. [facility] will follow for RN and PT/OT eval and treat. [facility] can be contacted at [phone]. Patient Instructions: Antibiotic Form, Pain Management (GEN), Joint Replacement Surgery (DC), Total Hip Replacement (DC) Stand Alone Forms: General Discharge Information Follow-up/Referrals: Garcia Mcqueen MD [Physician] - Keep Reg. Scheduled Appt. Discharge Medications: No Action trazodone 150 mg tablet 150 mg PO HS RF: 0 escitalopram oxalate 20 mg tablet 30 mg PO DAILY RF: 0 ibuprofen 800 mg Tablet 800 mg PO Q6H PRN (Reason: Pain) RF: 0 PNV [id number] fumarate-FA [] 28 mg iron- 800 mcg Tablet 1 tablet PO DAILY RF: 0 tramadol 50 mg tablet 50 mg PO Q6H PRN (Reason: pain) Qty: 50 RF: 0
== END 2021-01-23 18:05 | disposition home health service (06) ==
LOC: ANHSURGERY 14:05 → ANH2MED 14:51
PROVIDERS: PCP Family Medicine; Visit Provider Orthopaedic Surgery
PROC: (CPT 27130; principal; 2021-01-22 07:30)
DX: M16.12 Unilateral primary osteoarthritis, left hip (principal); G90.511 Complex regional pain syndrome I of right upper limb; F41.8 Other specified anxiety disorders; Z79.891 Long term (current) use of opiate analgesic; Z87.891 Personal history of nicotine dependence
CPT/HCPCS: 27130; 36415; 73502; 80048; 80307; 81003; 82040; 83036; 85025; 85055; 85610; 85730; 86850; 86900; 86901; 87081; 93005; 97110; 97116; 97161; 97165; 97530; A9270; C1776; C9803; J0171; J0690; J1100; J1170; J1885; J2250; J2270; J2405; J2704; J2710; J2795; J3010; J3360; J7120; U0003; U0005